=== PATIENT | female | born 1990 | race American Indian/Alaskan Native ===

== ENCOUNTER 2020-12-02 03:24 | Emergency (ER) | payer MEDICAID ==
[2020-12-02 03:45] VITALS: BP 113/52
--- NOTE | 2020-12-02 05:48 | Emergency Department Report ---
- General Chief Complaint: Chest Pain Stated Complaint: CHEST PAIN/ELIZABETH/HEADACHE Time Seen by Provider: 12/02/20 05:32 Source: patient Mode of arrival: Ambulatory Limitations: No Limitations - History of Present Illness MD Complaint: cough, rhinorrhea, nasal congestion, other (Nausea occasional diarrhea positive sick contacts possible coronavirus was seen at a local clinic on yesterday had a coronavirus test but results not due for the 24 hours suspicious of having the virus will need to have her lungs checked due to the shortness of breath and and worsening cough) Severity: mild Consistency: constant Improves With: nothing Worsens With: nothing Associated Symptoms: chills, rhinorrhea, nasal congestion, cough, nausea. denies: confusion, right sweats, weight loss, epistaxis, hoarseness, ear pain - Related Data Previous Rx's Medication Instructions Recorded Last Taken Type Acetaminophen [Tylenol] 500 mg PO Q6HR PRN #30 tablet 02/11/20 Unknown Rx Metoclopramide [Reglan] 10 mg PO Q8H PRN #30 tab 02/11/20 Unknown Rx cephALEXin [Keflex] 500 mg PO Q12HR #20 cap 02/11/20 Unknown Rx Albuterol Mdi (or & Nicu Only) 2 puff IH QID PRN #8.5 gram 12/02/20 Unknown Rx [ProAir HFA Inhaler] Benzonatate [Tessalon Perles] 100 mg PO Q8HR #20 capsule 12/02/20 Unknown Rx Allergies Allergy/AdvReac Type Severity Reaction Status Date / Time No Known Allergies Allergy Unverified 02/11/20 18:57 ED Review of Systems ROS: Stated complaint: CHEST PAIN/ELIZABETH/HEADACHE Other details as noted in HPI Comment: All other systems reviewed and negative ED Past Medical Hx - Past Medical History Previous Medical History?: Yes Additional medical history: ectopic, miscarriage - Surgical History Past Surgical History?: No - Social History Smoking Status: Never Smoker Substance Use Type: None - Medications Home Medications: Home Medications Medication Instructions Recorded Confirmed Last Taken Type Acetaminophen [Tylenol] 500 mg PO Q6HR PRN #30 tablet 02/11/20 Unknown Rx Metoclopramide [Reglan] 10 mg PO Q8H PRN #30 tab 02/11/20 Unknown Rx cephALEXin [Keflex] 500 mg PO Q12HR #20 cap 02/11/20 Unknown Rx Albuterol Mdi (or & Nicu Only) 2 puff IH QID PRN #8.5 gram 12/02/20 Unknown Rx [ProAir HFA Inhaler] Benzonatate [Tessalon Perles] 100 mg PO Q8HR #20 capsule 12/02/20 Unknown Rx ED Physical Exam - General Limitations: No Limitations General appearance: alert, in no apparent distress - Head Head exam: Present: atraumatic, normocephalic - Eye Eye exam: Present: normal appearance, PERRL, EOMI Pupils: Present: normal accommodation - ENT ENT exam: Present: normal exam, normal orophraynx, mucous membranes moist - Neck Neck exam: Present: normal inspection - Respiratory Respiratory exam: Present: normal lung sounds bilaterally, chest wall tenderness. Absent: respiratory distress, wheezes, rhonchi - Cardiovascular Cardiovascular Exam: Present: regular rate, normal rhythm. Absent: systolic murmur, diastolic murmur, rubs, gallop - GI/Abdominal GI/Abdominal exam: Present: soft, normal bowel sounds - Extremities Exam Extremities exam: Present: normal inspection - Back Exam Back exam: Present: normal inspection - Neurological Exam Neurological exam: Present: alert, oriented X3 - Psychiatric Psychiatric exam: Present: normal affect, normal mood - Skin Skin exam: Present: warm, dry, intact, normal color. Absent: rash ED Course Vital Signs 12/02/20 12/02/20 03:38 05:38 Temperature 98.4 F Pulse Rate 67 Respiratory 18 16 Rate Blood Pressure 113/52 O2 Sat by Pulse 99 98 Oximetry ED Medical Decision Making - Radiology Data Radiology results: report reviewed No acute processes Critical care attestation.: If time is entered above; I have spent that time in minutes in the direct care of this critically ill patient, excluding procedure time. ED Disposition Clinical Impression: URI (upper respiratory infection), Cough Disposition: DC-01 TO HOME OR SELFCARE Is pt being admited?: No Does the pt Need Aspirin: No Condition: Stable Instructions: Cough, Adult, Upper Respiratory Infection, Adult, [id number] Prescriptions: Albuterol Mdi (or & Nicu Only) [ProAir HFA Inhaler] 2 puff IH QID PRN #8.5 gram PRN Reason: Shortness Of Breath Benzonatate [Tessalon Perles] 100 mg PO Q8HR #20 capsule Referrals: RUTHANN GILES [Other] - 3-5 Days
--- NOTE | 2020-12-02 08:06 | XRay Report ---
CHEST 2 VIEWS INDICATION: chest pain, productive cough. COMPARISON: FINDINGS: Support devices: None. Heart: Within normal limits. Lungs: No acute air space or interstitial disease. Pleura: No significant pleural effusion. No pneumothorax. Additional findings: None. IMPRESSION: 1. No acute findings. Signer Name: Ramez Garcia MD Signed: 12/02/2020 4:10 AM Workstation Name: [id number]
--- NOTE | 2020-12-03 10:00 | Electrocardiograph Report ---
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 Atrial premature complex No previous ECG available for comparison Electronically Signed On 12-03-2020 10:00:25 EDT by Khang Man
== END 2020-12-02 06:30 | disposition home or self-care (01) ==
LOC: ED 03:24
DX: J06.9 Acute upper respiratory infection, unspecified (principal); R05 Cough; Z79.899 Other long term (current) drug therapy
CPT/HCPCS: 71046; 93005; 99282

== ENCOUNTER 2021-05-31 12:27 | Emergency (ER) | payer MEDICAID ==
--- NOTE | 2021-05-31 13:08 | Emergency Department Report ---
ED General Adult HPI - General Chief complaint: Nausea/Vomiting/Diarrhea Stated complaint: VOMITING, 11 WEEKS Time Seen by Provider: 05/31/21 12:48 Source: patient Mode of arrival: Ambulatory Limitations: No Limitations - History of Present Illness Initial comments: 30-year-old female was currently 11 weeks presents to the ER today with complaints of nausea and vomiting. She states that her symptoms started this morning. She states that he has vomited 4 times this morning. She denies any hematemesis or coffee-ground emesis. She reports discomfort mainly from the vomiting but no significant abdominal pain. She denies any vaginal bleeding or any abnormal vaginal discharge. She denies any UTI symptoms or diarrhea. She denies any fever or chills. She has established with an [facility] at [facility]. She states that she had an ultrasound done 4 weeks ago which showed an IUP. She has a follow-up with her T[facility] INSPECTOR this coming but when she called the office to see if she could going today they told to come to the ER. She has nothing at home for nausea and vomiting. She is Ab 3 (2 miscarriages, one ectopic) MD Complaint: Nausea vomiting, 11 weeks -: Sudden, This morning - Related Data Previous Rx's Medication Instructions Recorded Last Taken Type Acetaminophen [Tylenol] 500 mg PO Q6HR PRN #30 tablet 02/11/20 Unknown Rx Metoclopramide [Reglan] 10 mg PO Q8H PRN #30 tab 02/11/20 Unknown Rx cephALEXin [Keflex] 500 mg PO Q12HR #20 cap 02/11/20 Unknown Rx Albuterol Mdi (or & Nicu Only) 2 puff IH QID PRN #8.5 gram 12/02/20 Unknown Rx [ProAir HFA Inhaler] Benzonatate [Tessalon Perles] 100 mg PO Q8HR #20 capsule 12/02/20 Unknown Rx Ondansetron [Zofran Odt] 4 mg PO Q8HR #15 tab.rapdis 05/31/21 Unknown Rx Allergies Allergy/AdvReac Type Severity Reaction Status Date / Time No Known Allergies Allergy Unverified 02/11/20 18:57 ED Review of Systems ROS: Stated complaint: VOMITING, 11 WEEKS Other details as noted in HPI Comment: All other systems reviewed and negative Constitutional: denies: chills, diaphoresis, fever, malaise, weakness Eyes: denies: eye pain, eye discharge, vision change ENT: denies: ear pain, throat pain Respiratory: denies: cough, shortness of breath, wheezing Cardiovascular: denies: chest pain, palpitations, dyspnea on exertion, edema, syncope, paroxysmal nocturnal dyspnea Gastrointestinal: nausea, vomiting. denies: abdominal pain, diarrhea, constipation, hematemesis, melena, hematochezia Genitourinary: denies: urgency, dysuria, frequency, hematuria, discharge, ab normal menses, dyspareunia Musculoskeletal: denies: back pain, joint swelling, arthralgia, myalgia Skin: denies: rash, lesions, change in color, change in hair/nails, pruritus Neurological: denies: headache, weakness, numbness, paresthesias, confusion, abnormal gait, vertigo Psychiatric: denies: anxiety, depression, auditory hallucinations, visual hallucinations, homicidal thoughts, suicidal thoughts Hematological/Lymphatic: denies: easy bleeding, easy bruising ED Past Medical Hx - Past Medical History Additional medical history: ectopic, miscarriage - Social History Smoking Status: Never Smoker Substance Use Type: None - Medications Home Medications: Home Medications Medication Instructions Recorded Confirmed Last Taken Type Acetaminophen [Tylenol] 500 mg PO Q6HR PRN #30 tablet 02/11/20 Unknown Rx Metoclopramide [Reglan] 10 mg PO Q8H PRN #30 tab 02/11/20 Unknown Rx cephALEXin [Keflex] 500 mg PO Q12HR #20 cap 02/11/20 Unknown Rx Albuterol Mdi (or & Nicu Only) 2 puff IH QID PRN #8.5 gram 12/02/20 Unknown Rx [ProAir HFA Inhaler] Benzonatate [Tessalon Perles] 100 mg PO Q8HR #20 capsule 12/02/20 Unknown Rx Ondansetron [Zofran Odt] 4 mg PO Q8HR #15 tab.rapdis 05/31/21 Unknown Rx ED Physical Exam - General Limitations: No Limitations General appearance: alert, in no apparent distress - Head Head exam: Present: atraumatic, normocephalic, normal inspection - Eye Eye exam: Present: normal appearance, PERRL, EOMI Pupils: Present: normal accommodation - ENT ENT exam: Present: normal exam, mucous membranes moist - Neck Neck exam: Present: normal inspection, full ROM. Absent: meningismus, lymphadenopathy - Respiratory Respiratory exam: Present: normal lung sounds bilaterally. Absent: respiratory distress, wheezes, rales, rhonchi, stridor - Cardiovascular Cardiovascular Exam: Present: regular rate, normal rhythm, normal heart sounds - GI/Abdominal GI/Abdominal exam: Present: soft. Absent: distended, tenderness, guarding, rebound - Neurological Exam Neurological exam: Present: alert, oriented X3, CN II-XII intact, normal gait - Psychiatric Psychiatric exam: Present: normal affect, normal mood - Skin Skin exam: Present: intact ED Course Vital Signs 05/31/21 12:33 Temperature 97.4 F L Pulse Rate 78 Respiratory 16 Rate Blood Pressure 106/66 O2 Sat by Pulse 99 Oximetry ED Medical Decision Making - Lab Data Result diagrams: 05/31/21 14:39 05/31/21 14:39 - Medical Decision Making Patient reports feeling better after IV fluids and Zofran. She was able to tolerate p.o. fluids without any additional nausea and vomiting. She denies any abdominal pain or bleeding currently. Her vital signs are stable. She is not toxic or ill-appearing or in any significant distress. Labs reviewed with no significant abnormality. Urinalysis does not suggest UTI. Patient already had an outpatient ultrasound done at her [facility] office 4 weeks ago which showed an normal intrauterine . She is not having any pain or bleeding today significant is not occasional for doing another ultrasound in the ER today. Discussed all results with patient. She will be given medication to help with nausea and vomiting. She has a follow-up appointment with her T[facility] INSPECTOR this coming Sunday which I instructed her to keep. Patient expressed understanding for instructions and agree with plan. Patient stable at time of discharge. - Differential Diagnosis Electrolyte abnormality, UTI, dehydration Critical care attestation.: If time is entered above; I have spent that time in minutes in the direct care of this critically ill patient, excluding procedure time. ED Disposition Clinical Impression: Nausea and vomiting during Disposition: HOME / SELF CARE / HOMELESS Is pt being admited?: No Does the pt Need Aspirin: No Condition: Stable Instructions: Nausea and Vomiting, Adult, [id number], Morning Sickness, [id number] Additional Instructions: I recommend that you take the Zofran as prescribed to help with nausea and vomiting. Also recommend that she get vitamin B6 from [id number] which can also aid in nausea and vomiting and also waldemar. I recommend that you keep your appointment with your [facility] INS[facility]OR this coming . At any point your symptoms worsens, you develop any significant abdominal pain or bleeding, return to the ER. Prescriptions: Ondansetron [Zofran Odt] 4 mg PO Q8HR #15 tab.rapdis Referrals: PRIMARY CARE,MD [Primary Care Provider] - 3-5 Days Time of Disposition: 17:14
[2021-05-31 15:04] LABS: Basophils % (Auto) 0.5 % (0.0-1.8); Eosinophils % (Auto) 0.4 % (0.0-4.3); Hematocrit 38.8 % (30.3-42.9); Hemoglobin 12.6 gm/dl (10.1-14.3); Lymphocytes # (Auto) 0.8 K/mm3 (1.2-5.4); Lymphocytes % (Auto) 10.6 % (13.4-35.0); Mean Corpuscular HGB Conc 32 % (30-34); Mean Corpuscular Volume 88 fl (79-97); Monocytes # (Auto) 0.3 K/mm3 (0.0-0.8); Monocytes % (Auto) 4.5 % (0.0-7.3); Platelet Count 212 K/mm3 (140-440); Red Blood Count 4.42 M/mm3 (3.65-5.03); Red Cell Distribution Width 13.7 % (13.2-15.2)
[2021-05-31 15:10] LABS: Alanine Aminotransferase 14 units/L (7-56); Albumin 4.4 g/dL (3.9-5); Blood Urea Nitrogen 11 mg/dL (7-17); Calcium 9.1 mg/dL (8.4-10.2); Hemolysis Index 8
[2021-05-31] MEDS ORDERED: ONDANSETRON 4 MG/2 ML INJ IV ONE (15:15)
[2021-05-31] MEDS ORDERED: LACTATED RINGERS 1,000 ML IV ONE (15:15)
[2021-05-31 15:22] LABS: BUN/Creatinine Ratio 37
[2021-05-31 17:10] LABS: Bacteria,Urine 1+ /HPF (Negative); Bilirubin,Urine NEG (Negative); Blood,Urine NEG (Negative); Color,Urine Yellow (Yellow); Mucus,Urine FEW /HPF; Protein,Urine <15 mg/dL mg/dL (Negative); RBC,Urine < 1.0 /HPF (0.0-6.0); Urobilinogen,Urine < 2.0 mg/dL (<2.0)
[2021-05-31 17:27] VITALS: BP 118/74
== END 2021-05-31 17:26 | disposition home or self-care (01) ==
LOC: ED 12:27
DX: O21.9 Vomiting of pregnancy, unspecified (principal); Z3A.12 12 weeks gestation of pregnancy
CPT/HCPCS: 36415; 80053; 81001; 83735; 84702; 85025; 96361; 96374; 99283; J2405; J7120